=== PATIENT | female | born 1980 ===

== ENCOUNTER 2018-01-03 09:17 | Emergency (ER) | payer OTHER ==
[2018-01-03 09:21] VITALS: BMI 26.5
[2018-01-03 09:23] VITALS: O2SAT 100
[2018-01-03] MEDS ORDERED: Sodium Chloride 0.9% 1,000 ML IV STA (09:39)
[2018-01-03 09:51] LABS: BASO % 0.4 % (0.0-2.0); EOS # 0.6 K/uL (0.0-0.7); EOS % 8.2 % (0.0-4.0); HEMOGLOBIN 14.4 g/dL (12.0-16.0); LYMPH # 2.4 K/uL (1.0-4.3); LYMPH % 33.5 % (20.0-40.0); MEAN CELL VOLUME 93.5 fl (81.0-99.0); MEAN CORPUSCULAR HEMOGLOBIN 32.5 pg (27.0-31.0); MEAN CORPUSCULAR HGB CONC 34.7 g/dL (33.0-37.0); MEAN PLATELET VOLUME 9.2 fl (7.2-11.7); MONO # 0.5 K/uL (0.0-0.8); NEUT # 3.7 K/uL (1.8-7.0); NEUT % 50.9 % (50.0-75.0); NRBC % 0.1 % (0.0-0.0); RBC 4.44 Mil/uL (3.80-5.20); RED CELL DISTRIBUTION WIDTH 12.2 % (11.5-14.5); WHITE BLOOD COUNT 7.2 K/uL (4.8-10.8)
--- NOTE | 2018-01-03 09:58 | ED PDOC ---
Syncope/Near Syncope/Dizziness Time Seen by Provider: 01/03/18 09:27 Chief Complaint (Nursing): Dizziness/Lightheaded Chief Complaint (Provider): Dizziness History Per: Patient History/Exam Limitations: no limitations Onset/Duration Of Symptoms: Hrs Current Symptoms Are (Timing): Still Present Fall Associated With With Symptoms: No Additional Complaint(s): 37 year old female presents to the emergency department complaining of dizziness described as lightheadedness. Patient states that she felt as though he was going to pass out. She further states that she had a similar episode several months ago which resolved spontaneously so she did not seek medical attention. Patient also notes that she had been feeling anxious over relationship challenges. Denies history of bloodclots, pain/swelling in lower extremities, weakness, change in vision, nausea, headache, chest pain, shortness of breath. LMP: Several weeks ago (Normal) PMD: [facility] Past Medical History Reviewed: Historical Data, Nursing Documentation, Vital Signs Vital Signs: Last Vital Signs Temp 98.0 F 01/03/18 09:36 Pulse 119 H 01/03/18 09:36 Resp 15 01/03/18 09:36 BP 137/76 01/03/18 09:36 Pulse Ox 100 01/03/18 09:36 - Medical History PMH: No Chronic Diseases Denies: Kidney Stones, Chronic Kidney Disease - Surgical History Surgical History: No Surg Hx - Family History Family History: States: Unknown Family Hx - Social History Current smoker - smoking cessation education provided: No Alcohol: Social Drugs: Denies - Immunization History Hx Tetanus Toxoid Vaccination: No Hx Influenza Vaccination: No Hx Pneumococcal Vaccination: No - Allergies Allergies/Adverse Reactions: Allergies Allergy/AdvReac Type Severity Reaction Status Date / Time No Known Allergies Allergy Verified 05/15/13 09:18 Review of Systems ROS Statement: Except As Marked, All Systems Reviewed And Found Negative Constitutional: Positive for: Weakness Neurological: Positive for: Dizziness Physical Exam - Reviewed Nursing Documentation Reviewed: Yes Vital Signs Reviewed: Yes - Physical Exam Appears: Positive for: Non-toxic, No Acute Distress (Anxious appearing) Head Exam: Positive for: ATRAUMATIC, NORMAL INSPECTION, NORMOCEPHALIC Skin: Positive for: Normal Color, Warm, Dry. Negative for: Rash Eye Exam: Positive for: Normal appearance, EOMI, PERRL. Negative for: Nystagmus ENT: Positive for: Normal ENT Inspection. Negative for: Nasal Congestion, Tonsillar Exudate Neck: Positive for: Normal, Painless ROM, Supple Cardiovascular/Chest: Positive for: Chest Non Tender, Tachycardia (regular rhythm). Negative for: Murmur Respiratory: Positive for: Normal Breath Sounds. Negative for: Rales, Rhonchi, Wheezing, Respiratory Distress Gastrointestinal/Abdominal: Positive for: Normal Exam, Bowel Sounds, Soft. Negative for: Tenderness, Mass, Guarding, Rebound Back: Positive for: Normal Inspection. Negative for: L CVA Tenderness, R CVA Tenderness, Vertebral Tenderness Extremity: Negative for: Calf Tenderness, Deformity, Swelling Neurologic/Psych: Positive for: Alert, Oriented, Gait. Negative for: Motor/ Sensory Deficits - Laboratory Results Result Diagrams: 01/03/18 09:40 01/03/18 09:40 - ECG O2 Sat by Pulse Oximetry: 100 (RA) Medical Decision Making Medical Decision Makin Initial Impression 37 year old female presenting with dizziness Patient appears mildly tachycardic by sinus rhythm. Will workup for tachycardia r/o pulmonary embolism, electrolyte abnormality, anemia, anxiety. Initial Plan: * EKG * B-type Natriuretic * CMP * Drug screen * Troponin * Upreg * CBC * D-dimer * Partial Thromboplastin * Prothrombin Time * Chest x-ray * Accucheck * Ativan 0.5 mg IVP * NS 1000 ml IV 1000 mls/hr * Urinalysis * Reevaluation 0921 Initial Vitals Temperature: 97.9 F Pulse Rate: 115 H Back pain: 126/70 Resp Rate: 20 Oxygen saturation: 100 (RA) 1006 EKG performed: Sinus tachycardia 108 bpm with non specific changes, normal QRS. 1045 Upreg performed: Negative 1249 Blood work reviewed and reveals mild hyperkalemia, potassium replaced orally. Hemoglobin normal. Kidney function unremarkable. D-dimer negative. Urinalysis negative. --Reeval Patient reevaluated with improvement of symptoms. Tachycardia has resolved. Patient will be discharged with instructions to follow up with primary doctor. ADRIENNE CORDON, thank you for letting us take care of you today. Your provider was Tevin Granger III, DO and you were treated for DIZZINESS. The emergency medical care you received today was directed at your acute symptoms. If you were prescribed any medication, please fill it and take as directed. It may take several days for your symptoms to resolve. Return to the Emergency Department if your symptoms worsen, do not improve, or if you have any other problems. Please contact your doctor or call one of the physicians/clinics you have been referred to that are listed on the Patient Visit Information form that is included in your discharge packet. Bring any paperwork you were given at discharge with you along with any medications you are taking to your follow up visit. Our treatment cannot replace ongoing medical care by a primary care provider outside of the emergency department. Thank you for allowing the [facility] team to be part of your care today. If you had an X-Ray or CT scan: A Radiologist will review the ED reading if any change in treatment is needed we will contact you. If you had a blood, urine, or wound culture: It will take several days for the results, if any change in treatment is needed we will contact you. If you had an STI test: It will take 48 hours for the results. Please call after 1 week if you have not heard back. -------- Documented by Emily Tapia acting as a scribe for Tevin Granger III, DO. All medical record entries made by the Scribe were at my direction and personally dictated by me. I have reviewed the chart and agree that the record accurately reflects my personal performance of the history, physical exam, medical decision making, and the department course for this patient. I have also personally directed, reviewed, and agree with the discharge instructions and disposition. Disposition - Clinical Impression Clinical Impression: Dizziness, Hypokalemia, Dehydration - Patient ED Disposition Is Patient to be Admitted: No Counseled Patient/Family Regarding: Studies Performed, Diagnosis, Need For Followup - Disposition Referrals: Luis [facility] [employer] [facility] [Outside] Disposition: Routine/Home Disposition Time: 12:55 Condition: STABLE Additional Instructions: Drink more fluids, replace potassium with supplementation of orange juice and bananas several times a week. Return to ER for any worse or new symptoms. Instructions: Hypokalemia, Dehydration, Adult (DC), Dizziness, Nonvertigo, (DC) Forms: [facility] (Greek) - POA Present On Arrival: None
[2018-01-03 10:03] LABS: PARTIAL THROMBOPLASTIN TIME 31.9 Seconds (25.6-37.1); PROTHROMBIN TIME 11.2 Seconds (9.8-13.1)
[2018-01-03 10:18] LABS: ALB/GLOB RATIO 1.3 (1.0-2.1); ALBUMIN 4.7 g/dL (3.5-5.0); ALT/SGPT 28 U/L (9-52); AST/SGOT 24 U/L (14-36); B-TYPE NATRIURETIC PEPTIDE 102 pg/ml (0-450); BLOOD UREA NITROGEN 14 mg/dl (7-17); CALCIUM 9.5 mg/dL (8.4-10.2); GFR AFRICAN-AMERICAN > 60; GFR NON-AFRICAN AMERICAN > 60
[2018-01-03 11:04] LABS: SQUAMOUS EPITHIAL 2 /hpf (0-5); URINE BACTERIA RARE (<OCC); URINE BILIRUBIN NEGATIVE (NEGATIVE); URINE BLOOD NEGATIVE (NEGATIVE); URINE CLARITY CLEAR (Clear); URINE COLOR COLORLESS (YELLOW); URINE GLUCOSE (UA) NEG (Normal); URINE LEUKOCYTE ESTERASE NEG Leu/uL (Negative); URINE PROTEIN NEGATIVE (NEGATIVE); URINE UROBILINOGEN 0.2-1.0 mg/dL (0.2-1.0)
[2018-01-03 11:16] LABS: BARBITURATES, UR NEGATIVE (NEGATIVE); BENZODIAZEPINES, UR NEGATIVE (NEGATIVE); OPIATES, UR NEGATIVE (NEGATIVE); PHENCYCLIDINE, UR NEGATIVE (NEGATIVE)
--- NOTE | 2018-01-03 11:29 | RAD ---
Date of service: 01/03/2018 HISTORY: palpitatipons COMPARISON: No prior. FINDINGS: LUNGS: No active pulmonary disease. PLEURA: No significant pleural effusion identified, no pneumothorax apparent. CARDIOVASCULAR: Normal. OSSEOUS STRUCTURES: No significant abnormalities. VISUALIZED UPPER ABDOMEN: Normal. OTHER FINDINGS: None. IMPRESSION: No active disease.
--- NOTE | 2018-01-03 12:27 | CARD ---
APPROVED REPORT Date of service: 01/03/2018 EKG Measurement Heart [id number] <Conclusion> Sinus tachycardia Possible Left atrial enlargement Nonspecific ST abnormality Abnormal ECG
[2018-01-03] MEDS ORDERED: Potassium Chloride 20 mEq ER Tab PO ONE (12:48)
[2018-01-03 13:47] VITALS: BP 119/65; PULSE 77; RESP 17; TEMP 97.6
== END 2018-01-03 13:22 | disposition home or self-care (01) ==
LOC: H.ER 09:17
DX: R42 Dizziness and giddiness (principal); E87.6 Hypokalemia; E86.0 Dehydration
CPT/HCPCS: 71045; 80053; 80324; 80345; 80346; 80349; 80353; 80358; 80361; 81003; 81025; 82948; 83880; 83992; 84484; 85025; 85378; 85610; 85730; 93005; 96361; 96374; 99281; J2060; J7030